=== PATIENT | female | born 1955 | race Caucasian/White ===

== ENCOUNTER → 2024-04-02 12:18 | Outpatient (REF) | payer MEDICARE, SELFPAY | LOC: HWRAD 12:18 | PROVIDERS: ATTENDING PHYSICIAN Nurse Practitioner Family; FAMILY PHYSICIAN Family Medicine | DX: R09.82 Postnasal drip (principal); J32.9 Chronic sinusitis, unspecified; R22.1 Localized swelling, mass and lump, neck | CPT/HCPCS: 70486; 76536 ==